=== PATIENT | male | born 1960 | race Caucasian/White ===

== ENCOUNTER 2018-10-15 20:10 | Emergency (ER) | payer OTHER ==
[~2018-10-15] VITALS: Ht 170.2 cm; Wt 71.7 kg
[~2018-10-15 20:10] MED LIST: HYDR-3498 PO; IBUP-1542 PO
[2018-10-15 20:16] VITALS: Ht 170.2 cm; Wt 71.7 kg
[2018-10-15] MEDS ORDERED: ONDANSETRON 4 MG INJ IV STA (20:30)
[2018-10-15] MEDS ORDERED: HYDROCODONE/APAP (10/325) TAB PO ONE (20:30)
[2018-10-15] MEDS ORDERED: ONDANSETRON (ODT) 4 MG TAB ODT STA (20:33)
[2018-10-15] MEDS ORDERED: NALO4SPR NS (21:10)
[2018-10-15] MEDS ORDERED: HYDR-3980 PO (21:10)
[2018-10-15] MEDS ORDERED: ONDA4TAB14 PO (21:10)
[2018-10-15] MEDS ORDERED: IBUP800T48 PO (21:10)
[2018-10-15 21:19] VITALS: BP 125/85; PULSE 83; RESP 20
--- NOTE | 2018-10-15 21:22 | ERD ---
ER Documentation Chief Complaint Chief Complaint Pt reports falling yesterday, c/o L CP HPI 58-year-old gentleman who yesterday had a mechanical slip and fall onto some stairs. The patient landed on the left side of his ribs. Patient describes left-sided chest wall pain and rib pain to the upper ribs on the left side of the chest. The pain is moderate and throbbing but worse with rotational movement and worse to touch. No significant shortness of breath. He denies any prodrome of chest pain or shortness of breath or headache. He did not his head or lose consciousness. He denies abdominal pain or extremity pain. Patient took some Motrin but no significant relief. Pain is worse today than yesterday. Pain currently is 7 out of 10. ROS All systems reviewed and are negative except as per history of present illness. Medications Home Meds Active Scripts Naloxone HCl nasal spray (Narcan 4 mg/0.1 mL nasal) 4 Mg Munday, 4 MG NS .Q2-3MIN for OPIOID OVERDOSE, #2 SPRAY 0 Refills Munday 0.1 mL into one nostril. Repeat with second device into other nostril after 2-3 minutes if no or minimal response Prov:AIRAM BEACH MD 10/15/18 Ibuprofen* (Motrin*) 800 Mg Tab, 800 MG PO Q6H PRN for PAIN AND OR ELEVATED TEMP, #30 TAB Prov:AIRAM BEACH MD 10/15/18 Ondansetron (Ondansetron Odt) 4 Mg Tab.rapdis, 4 MG PO Q6H PRN for NAUSEA AND/OR VOMITING, #20 TAB Prov:AIRAM BEACH MD 10/15/18 Hydrocodone/Acetaminophen (Fairbank 10-325 Tablet) 1 Each Tablet, 1 TAB PO Q6H PRN for PAIN, #12 TAB Prov:AIRAM BEACH MD 10/15/18 Hydrocodone Bit-Acetaminophen* (Fairbank*) 5-325 Mg Tab, 1 TAB PO Q6 PRN for PAIN, #20 TAB Prov:SONY ADAMS NP 08/14/15 Ibuprofen* (Motrin*) 600 Mg Tab, 600 MG PO Q6H PRN for PAIN AND OR ELEVATED TEMP, #30 TAB Prov:SONY ADAMS NP 08/14/15 Reported Medications [none] Unknown Strength No Conflict Check 08/14/15 Allergies Allergies: Coded Allergies: No Known Allergy (Unverified , 08/14/15) PMhx/Soc History of Surgery: No Anesthesia Reaction: No Hx Neurological Disorder: No Hx Respiratory Disorders: No Hx Cardiac Disorders: No Hx Psychiatric Problems: No Hx Miscellaneous Medical Probl: No Hx Alcohol Use: Yes (OCC) Hx Substance Use: No Hx Tobacco Use: Yes (OCC) Smoking Status: Current some day smoker FmHx Family History: No diabetes Physical Exam Vitals Vital Signs Date Temp Pulse Resp B/P (MAP) Pulse Ox O2 O2 Flow FiO2 Time Delivery Rate 10/15/18 98.6 93 16 119/75 100 20:16 (90) Physical Exam Airway is intact Bilateral breath sounds Strong distal pulses No obvious deficits General: Well developed, well nourished, no acute distress Head: Normocephalic, atraumatic Eyes: Pupils equally reactive, EOM intact ENT: Moist mucous membranes Neck: Supple, no lymphadenopathy, No midline tenderness, deformities, step-offs to the cervical spine, full active and passive range of motion without midline pain. Respiratory: Lungs clear bilaterally, no distress, reproducible left-sided chest wall tenderness without crepitus deformities or step-offs. Tenderness seems to be localized over ribs 3 4 and 5 Cardiovascular: RRR, no murmurs, rubs, or gallops Abdominal: Soft, non-tender, non-distended, no peritoneal signs, pelvis is stable : Deferred MSK: No edema, no unilateral swelling, 5/5 strength, no midline tenderness deformities or step-offs to the thoracolumbar spine Neurologic: Alert and oriented, moving all extremities, normal speech, no focal weakness, no cerebellar signs Skin: No ecchymoses or bruising to the chest or abdomen Psych: Normal mood Results 24 hrs Current Medications Medications Dose Sig/Shayla Start Time Status Last (Trade) Ordered Route PRN Stop Time Admin Dose Reason Admin 1 tab ONCE ONCE 10/15/18 DC 10/15/18 Acetaminophen PO 20:30 20:37 / 10/15/18 20:32 Hydrocodone Bitart (Fairbank (10/325)) Ondansetron 4 mg ONCE STAT 10/15/18 DC HCl (Zofran IV 20:30 Inj) 10/15/18 20:32 Ondansetron 4 mg ONCE STAT 10/15/18 DC 10/15/18 HCl (Zofran ODT 20:33 20:37 Odt) 10/15/18 20:35 Procedures/MDM EKG, MONITORS, & DIAGNOSTIC IMAGING: X-ray left ribs: No acute fracture per radiologist read X-ray chest: No acute process per radiologist read EKG: I reviewed and interpreted a 12-lead EKG. Rhythm: Normal sinus rhythm ST Changes: No contiguous ST segment elevations T waves: No contiguous T wave inversions Impression: No evidence of acute cardiac ischemia MEDICAL DECISION MAKING: Patient with mechanical trip and fall. No signs or symptoms concerning for syncope or cardiac arrhythmia. The patient has chest wall pain likely consistent with contusion, cannot rule out fracture. X-ray imaging appropriate. No head pain or injury during the fall. The patient does not meet high-risk criteria and based on NEXUS cervical spine criteria there is no indication for cervical spine imaging at this time. No other evidence of extremity injury ER COURSE: * Patient given pain medication. X-ray imaging negative. Incentive spirometer provided. The patient is safe for discharge with return precautions that were discussed and understood. CONSULTATION: None DISPOSITION PLAN: The patient does not have an identifiable emergent medical condition that warrants inpatient hospitalization at this time. The patient is deemed safe for discharge with outpatient follow-up. We discussed follow up with the patient's primary care doctor within 24 to 48 hours as needed. We also discussed return to the emergency room for worsening symptoms or worsening condition. Outpatient referral: None required Discharge Medications: Fairbank, Zofran, Motrin NARCOTIC MEDICATION: The patient has been prescribed a narcotic medication during this encounter. The patient has been warned about the use of narcotics. The patient should not drive or operate heavy machinery while taking this medication. The patient was also warned about the addictive properties of narcotic medications. Narcan prescription WAS provided given one of the following criteria were met: 1. More than 5 tablets of Fairbank 10 mg or 10 tablets of Fairbank 5 mg were prescribed. 2. Concomitant opiate and benzodiazepine prescriptions were provided. 3. There is evidence of prior history of opiate abuse or overdose. Departure Diagnosis: Primary Impression: Chest wall contusion Encounter type: initial encounter Laterality: left Qualified Codes: S20.212A - Contusion of left front wall of thorax, initial encounter Condition: Stable Patient Instructions: Chest Wall Contusion Referrals: [facility] YOU HAVE RECEIVED A MEDICAL SCREENING EXAM AND THE RESULTS INDICATE THAT YOU DO NOT HAVE A CONDITION THAT REQUIRES URGENT TREATMENT IN THE EMERGENCY DEPARTMENT. FURTHER EVALUATION AND TREATMENT OF YOUR CONDITION CAN WAIT UNTIL YOU ARE SEEN IN YOUR DOCTORS OFFICE WITHIN THE NEXT 1-2 DAYS. IT IS YOUR RESPONSIBILITY TO MAKE AN APPOINTMENT FOR FOLOW-UP CARE. IF YOU HAVE A PRIMARY DOCTOR --you should call your primary doctor and schedule an appointment IF YOU DO NOT HAVE A PRIMARY DOCTOR YOU CAN CALL OUR PHYSICIAN REFERRAL HOTLINE AT IF YOU CAN NOT AFFORD TO SEE A PHYSICIAN YOU CAN CHOSE FROM THE FOLLOWING [facility] [address] [facility]. [facility] [address] [facility]. [facility] [address] [facility] [facility] [address] [facility] [address] [facility]. [facility] [address] [facility]. [facility] YOU HAVE RECEIVED A MEDICAL SCREENING EXAM AND THE RESULTS INDICATE THAT YOU DO NOT HAVE A CONDITION THAT REQUIRES URGENT TREATMENT IN THE EMERGENCY DEPARTMENT. FURTHER EVALUATION AND TREATMENT OF YOUR CONDITION CAN WAIT UNTIL YOU ARE SEEN IN YOUR DOCTORS OFFICE WITHIN THE NEXT 1-2 DAYS. IT IS YOUR RESPONSIBILITY TO MAKE AN APPOINTMENT FOR FOLOW-UP CARE. IF YOU HAVE A PRIMARY DOCTOR --you should call your primary doctor and schedule and appointment IF YOU DO NOT HAVE A PRIMARY DOCTOR YOU CAN CALL OUR PHYSICIAN REFERRAL HOTLINE AT . IF YOU CAN NOT AFFORD TO SEE A PHYSICIAN YOU CAN CHOSE FROM THE FOLLOWING [facility]: [facility] [address] [place] [address] [facility] [address] [place] [address] [facility] [address] [place] [address] Additional Instructions: Call your primary care doctor TOMORROW for an appointment during the next 1 WEEK.Tell the waxer operator that you were referred from this facility.See the doctor sooner or return here if your condition worsens before your appointment time. AIRAM BEACH MD October 15, 2018 21:22
== END 2018-10-15 21:17 | disposition home or self-care (01) ==
LOC: E/R 20:10
DX: S20.212A Contusion of left front wall of thorax, initial encounter (principal); F17.210 Nicotine dependence, cigarettes, uncomplicated; W10.8XXA Fall (on) (from) other stairs and steps, initial encounter; Y92.9 Unspecified place or not applicable
CPT/HCPCS: 71045; 71100; Z7502; Z7610; 93005